=== PATIENT | male | born 2000 ===

== ENCOUNTER 2021-08-25 15:16 | Emergency (ER) | payer SELFPAY ==
[~2021-08-25] VITALS: Ht 190.5 cm; Wt 104.5 kg
[2021-08-25 15:27] VITALS: BP 131/96
== END 2021-08-25 18:13 | disposition left against medical advice (07) ==
LOC: EMS 15:16
DX: S61.217A Laceration without foreign body of left little finger without damage to nail, initial encounter (principal); W45.8XXA Other foreign body or object entering through skin, initial encounter; Y93.89 Activity, other specified; Y92.89 Other specified places as the place of occurrence of the external cause; Y99.8 Other external cause status; Z53.21 Procedure and treatment not carried out due to patient leaving prior to being seen by health care provider